=== PATIENT | female | born 2000 | race African-American/Black ===

== ENCOUNTER 2021-11-29 21:10 | Inpatient (IN) ==
[2021-11-29] MEDS ORDERED: MEPERIDINE 50 MG/1 ML VIAL IV PRN (22:02)
[2021-11-29] MEDS ORDERED: ONDANSETRON 4 MG/2 ML VIAL IV PRN (22:02)
[2021-11-29] MEDS ORDERED: CARBOPROST TROMETHAMINE 250 MCG/ML AMP IM PRN (22:02)
[2021-11-29] MEDS ORDERED: OXYTOCIN/LR 20 UNIT/1,000 ML BAG IV PRN ×2 (22:02)
[2021-11-29] MEDS ORDERED: BUTORPHANOL 2 MG/ML VIAL IV PRN (22:02)
[2021-11-29] MEDS ORDERED: miSOPROStoL 200 MCG TABLET RECTAL PRN (22:02)
[2021-11-29] MEDS ORDERED: TRANEXAMIC ACID 1,000 MG in SODIUM CHLORIDE 0.9% 100 ML IV PRN (22:02)
[2021-11-29] MEDS ORDERED: METHYLERGONOVINE 0.2 MG/1 ML AMP IM PRN (22:02)
[2021-11-29 22:44] LABS: Basophils % 0.5 % (0.0-0.8); Eosinophils # 0.1 10*3/uL (0.0-0.87); Eosinophils % 0.6 % (0.00-10.9); Hematocrit 33.1 VOL% (35.7-47.0); Hemoglobin 10.4 GM/DL (12.0-16.0); Immature Granulocytes % 0.5 %; Immature Granulocytes Absolute 0.04 #; Lymphocytes # 2.2 10*3/uL (1.4-4.0); Mean Corpuscular HGB Conc 31.4 GM/DL (32-36); Mean Corpuscular Volume 81.9 FL (87-102); Mean Platelet Volume 11.7 FL (9.6-12.0); Monocytes # 0.8 10*3/uL (0.11-0.8); Monocytes % 9.2 % (1.7-12.7); Neutrophils % 64.2 % (38.7-73.9); Platelet Count 266 T/CUMM (130-400); Red Blood Count 4.04 MC/CUMM (3.8-5.5); Red Cell Distribution Width 14.6 % (9.3-17.3); White Blood Count 8.8 T/CUMM (4-12)
[2021-11-29 23:07] LABS: Alanine Aminotransferase 16 U/L (13-56); Albumin 2.8 G/DL (3.4-5.0); Alkaline Phosphatase 143 U/L (45-117); Aspartate Amino Transferase 14 U/L (0-37); Bilirubin,Total < 0.39 MG/DL (0.20-1.00); Blood Urea Nitrogen 6 MG/DL (7-18); Carbon Dioxide 22 MMOL/L (21-32); Chloride 107 MMOL/L (98-107); Glucose 89 MG/DL (74-106); Osmolality,Calculated 273.5 MOS/KG (273-304); Sodium 139 MMOL/L (136-145); Total Protein 7.2 G/DL (6.4-8.2)
[2021-11-30] MEDS: LACTATED RINGERS 1,000 ML IV PRN ×2 (03:11→04:02)
[2021-11-30] MEDS ORDERED: PROMETHAZINE 25 MG/1 ML VIAL IM PRN (03:14)
[2021-11-30] MEDS ORDERED: NALOXONE 0.4 MG/ML VIAL IV PRN (03:14)
[2021-11-30] MEDS ORDERED: ePHEDrine 50 MG/ML VIAL IV PRN (03:14)
[2021-11-30] MEDS ORDERED: hydrOXYzine HCL 25 MG/1 ML VIAL IM PRN (03:14)
[2021-11-30] MEDS ORDERED: diphenhydrAMINE 50 MG/1 ML VIAL IV PRN ×2 (03:14)
[2021-11-30] MEDS ORDERED: FAMOTIDINE 20 MG/2 ML VIAL IV ONE (03:15)
[2021-11-30] MEDS ORDERED: CITRIC ACID/SODIUM CITRATE 30 ML UDCUP PO ONE (03:15)
[2021-11-30] MEDS ORDERED: fentaNYL 2 MCG/ROPIV 0.2% EPID 100 ML EPIDURAL SCH (03:30)
[2021-11-30 05:19] LABS: Mucus,Urine Occasional /LPF (Occasional); RBC,Urine 6 /HPF (0-4); Squamous Epithelial Cell,Urine Occasional /HPF (0-10); Urine Appearance Clear (Clear); Urine Color Yellow (Yellow); Urine Specific Gravity > 1.030 (1.001-1.035); Urine pH 6.5 (4.5-8.0)
[2021-11-30 05:20] LABS: Bilirubin,Urine Negative (Negative); Blood, Urine Trace mg/dL (Negative); Glucose,Urine (UA) Negative (Negative); Ketones,Urine 40 mg/dL (Negative); Nitrite,Urine Negative (Negative); Protein,Urine Negative (Negative)
[2021-11-30] MEDS ORDERED: SODIUM CHLORIDE 0.9% 0 ML IV ONE (05:53)
[2021-11-30] MEDS ORDERED: TRANEXAMIC ACID 1,000 MG/10 ML VIAL ONE (05:53)
[2021-11-30] MEDS ORDERED: miSOPROStoL 200 MCG TABLET ONE (05:53)
[2021-11-30] MEDS ORDERED: METHYLERGONOVINE 0.2 MG/1 ML AMP ONE (05:54)
[2021-11-30] MEDS ORDERED: CARBOPROST TROMETHAMINE 250 MCG/ML AMP IM ONE (05:54)
[2021-11-30] MEDS ORDERED: OXYTOCIN/LR 20 UNIT/1,000 ML BAG IV ONE ×2 (05:54→07:05)
[2021-11-30 06:39] LABS: Cord Venous Blood HCO3 21.4 MMOL/L; Cord Venous Blood PCO2 43.6 MMHG; Cord Venous Blood PO2 25.5
[2021-11-30] MEDS ORDERED: HYDROCORTISONE 2.5% RECTAL CREAM 30 GM TUBE TOP PRN (07:05)
[2021-11-30] MEDS ORDERED: WITCH HAZEL PADS 100/JAR TOP PRN (07:05)
[2021-11-30] MEDS ORDERED: BISACODYL 10 MG SUPP RECTAL PRN (07:05)
[2021-11-30] MEDS ORDERED: LANOLIN 50% CREAM 0.3 OZ TUBE TOP PRN (07:05)
[2021-11-30] MEDS ORDERED: RHO(D) IMMUNE GLOBULIN 300 MCG SYRINGE IM ONE (07:05)
[2021-11-30] MEDS ORDERED: oxyCODONE/ACETAMINOPHEN 5-325 MG TABLET PO PRN (07:05)
[2021-11-30] MEDS ORDERED: BENZOCAINE 20%/MENTHOL 0.5% SPRAY 56 GM CAN TOP PRN (07:05)
[2021-11-30] MEDS ORDERED: DIPH/TET/ACEL PERT BOOSTER VACCINE 0.5 ML VIAL IM ONE (07:05)
[2021-11-30] MEDS ORDERED: ACETAMINOPHEN 325 MG TABLET PO PRN (07:05)
[2021-11-30] MEDS ORDERED: ONDANSETRON 4 MG/2 ML VIAL IV PRN (07:05)
[2021-11-30] MEDS ORDERED: MEASLES/MUMPS/RUBELLA VACCINE 0.5 ML VIAL SUBCUT ONE (07:05)
[2021-11-30] MEDS: DOCUSATE SODIUM 100 MG CAPSULE PO SCH ×2 (10:10→20:37)
[2021-11-30] MEDS: IBUPROFEN 800 MG TABLET PO PRN (11:51)
[2021-12-01] MEDS: IBUPROFEN 800 MG TABLET PO PRN ×2 (03:48→17:34)
[2021-12-01 06:02] LABS: Basophils # 0.1 10*3/uL (0.0-0.2); Basophils % 0.6 % (0.0-0.8); Eosinophils # 0.2 10*3/uL (0.0-0.87); Eosinophils % 1.5 % (0.00-10.9); Hematocrit 30.4 VOL% (35.7-47.0); Hemoglobin 9.7 GM/DL (12.0-16.0); Immature Granulocytes % 0.3 %; Immature Granulocytes Absolute 0.03 #; Lymphocytes # 3.2 10*3/uL (1.4-4.0); Lymphocytes % 29.3 % (21.3-54.2); Mean Corpuscular HGB Conc 31.9 GM/DL (32-36); Mean Corpuscular Volume 81.5 FL (87-102); Mean Platelet Volume 10.8 FL (9.6-12.0); Monocytes # 0.9 10*3/uL (0.11-0.8); Neutrophils % 60.3 % (38.7-73.9); Platelet Count 240 T/CUMM (130-400); Red Blood Count 3.73 MC/CUMM (3.8-5.5); Red Cell Distribution Width 14.7 % (9.3-17.3); White Blood Count 10.7 T/CUMM (4-12)
[2021-12-01] MEDS: DOCUSATE SODIUM 100 MG CAPSULE PO SCH ×2 (09:31→21:15)
[2021-12-01] MEDS: MULTIVITAMIN (PRENATAL) TABLET PO SCH (09:31)
[2021-12-01] MEDS: oxyCODONE/ACETAMINOPHEN 5-325 MG TABLET PO PRN (17:39)
[2021-12-02] MEDS: IBUPROFEN 800 MG TABLET PO PRN (04:10)
[2021-12-02 04:53] VITALS: BP 107/58
[2021-12-02] MEDS: oxyCODONE/ACETAMINOPHEN 5-325 MG TABLET PO PRN (08:11)
[2021-12-02] MEDS: DOCUSATE SODIUM 100 MG CAPSULE PO SCH (09:30)
[2021-12-02] MEDS: MULTIVITAMIN (PRENATAL) TABLET PO SCH (09:44)
== END 2021-12-02 12:15 | disposition home or self-care (01) | DRG 807 ==
LOC: N.LD 21:10 → N.OB 11-30 08:56
PROVIDERS: ADMIT Obstetrics & Gynecology; ATTEND Obstetrics & Gynecology